=== PATIENT | female | born 1945 | race Caucasian/White ===

== ENCOUNTER → 2016-04-19 | Outpatient (CLI) | payer OTHER ==
--- NOTE | 2016-04-19 18:48 | DX ---
Cervical Spine - 4 views Indication: Spinal fusion. Follow up. Comparison: Cervical spine series dated March 11, 2016 Technique: Upright AP and lateral views in the neutral, flexed, and extended position. Findings: C2 is anterolisthesed 2.5 mm on C3, and C3 is anterolisthesed 2.5 mm on C4 with flexion ma neuvers. This reduces into anatomic alignment with extension (similar to February 2016). The anterior and posterior fusion construct extending from C4 to T1 remains well seated. No perihilar hardware fracture or lucency. The C4 through T1 vertebral bodies are at least partially osseous fuse d. Prevertebral soft tissues are normal. Impression: 1. Minimal instability at the C2-C3 and C3-C4 levels is similar to February 2016. 2. Well seated anterior and posterior fusion construct extending from C4 to T1.
== END ==
LOC: FIMAGING 14:29
PROVIDERS: ATTEND Physician Assistant Surgical
DX: Z09 Encounter for follow-up examination after completed treatment for conditions other than malignant neoplasm (principal); Z98.1 Arthrodesis status

== ENCOUNTER → 2016-06-25 | Outpatient (CLI) | payer OTHER | LOC: FIMAGING 14:07 | PROVIDERS: ATTEND Neurological Surgery | DX: M51.36 Other intervertebral disc degeneration, lumbar region (principal) ==

== ENCOUNTER 2016-07-08 08:45 | Inpatient (IN) | payer OTHER ==
[~2016-07-08 08:45] MED LIST: CITRATE DEXTROSE SOLN 500 ML BAG ONE; DEXAMETHASONE 10 MG/ML VIAL IVP ONE; ceFAZolin 2 GM/DEXTROSE 100 ML IV ONE; fentaNYL 100 MCG/2 ML INJ IT ONE; morphINE PF 5 MG/10 ML INJ IT ONE
[2016-07-08] MEDS ORDERED: THROMBIN (BOVINE) 5,000 UNIT VIAL TP ONE ×2 (09:07→15:27)
[2016-07-08] MEDS ORDERED: BUPIVACAINE 0.25% 30 ML SDV ONE (09:07)
[2016-07-08] MEDS ORDERED: BUPIVACAINE/EPI 0.25% 30 ML SDV ONE (09:08)
[2016-07-08] MEDS ORDERED: BACITRACIN 50,000 UNITS/10 ML SYR IRR ONE ×3 (09:08→15:27)
[2016-07-08] MEDS ORDERED: LIDOCAINE 1% 5 ML SDV ID PRN (09:33)
[2016-07-08] MEDS ORDERED: LR 1,000 ML IV ONE ×2 (09:33→09:40)
[2016-07-08] MEDS ORDERED: PROPOFOL/EMULSION 500 MG/50 ML BOTTLE IV ONE ×3 (09:35→14:10)
[2016-07-08] MEDS ORDERED: fentaNYL 100 MCG/2 ML INJ ONE ×4 (09:35→17:07)
[2016-07-08] MEDS ORDERED: PROPOFOL 200 MG/20 ML VIAL ONE (09:35)
[2016-07-08] MEDS ORDERED: REMIFENTANIL HCL 1 MG VIAL ONE ×3 (09:35)
[2016-07-08] MEDS ORDERED: CITRATE DEXTROSE SOLN 500 ML BAG ONE (10:20)
[2016-07-08] MEDS ORDERED: ROCURONIUM 50 MG/5 ML VIAL ONE (10:31)
[2016-07-08] MEDS ORDERED: ONDANSETRON 4 MG/2 ML VIAL ONE (10:31)
[2016-07-08] MEDS ORDERED: DEXAMETHASONE 4 MG/ML VIAL ONE (10:32)
[2016-07-08] MEDS ORDERED: LIDOCAINE 2% 5 ML SDV ONE (10:38)
[2016-07-08] MEDS ORDERED: PHENYLEPHRINE HCL 100 MCG/ML SYR ONE (11:51)
[2016-07-08] MEDS ORDERED: PHENYLEPHRINE 10 MG/ML SDV ONE (12:18)
[2016-07-08] MEDS ORDERED: ceFAZolin 1 GM VIAL ONE (13:49)
[2016-07-08] MEDS ORDERED: morphINE PF 10 MG/10 ML INJ ONE (15:16)
[2016-07-08 15:42] LABS: ADD DIFF? NO; ADD MORPH? NO; ADD SCAN? NO; ATYPICAL LYMPHOCYTE FLAG 0 (0-99); BASE EXCESS -5.2 mEq/L (-2.5-2.5); BICARBONATE 19 mEq/L (22-26); FRAGMENT RBC FLAG 0 (0-99); HEMATOCRIT 26.4 % (38.0-47.0); HEMOGLOBIN 8.9 g/dL (12.6-16.3); LEFT SHIFT FLG 10 (0-99); LIPEMIA HEMOLYSIS FLAG 80 (0-99); MEAN CELL HEMOGLOBIN 32.2 pg (27.9-34.1); MEAN CELL HEMOGLOBIN CONCENTR. 33.7 g/dL (32.4-36.7); MEAN CELL VOLUME 95.7 fL (81.5-99.8); MEAN PLATELET VOLUME 10.5 fL (8.7-11.7); MEASURED OXYGEN SATURATION 99 % (92-95); PCO2 36 mmHg (34-38); PLATELET CLUMPS FLAG 0 (0-99); PLATELET COUNT 224 10^3/uL (150-400); PO2 215 mmHg (65-75); RED BLOOD CELL COUNT 2.76 10^6/uL (4.18-5.33); RED CELL DISTRIBUTION WIDTH 12.6 % (11.5-15.2); TCO2 20 mEq/L (23-27)
[2016-07-08] MEDS ORDERED: ALBUMIN 5% 250 ML BOTTLE IV ONE (15:45)
[2016-07-08 16:04] LABS: INR 1.22 (0.83-1.16); PROTIME(PATIENT) 15.4 SEC (12.0-15.0)
[2016-07-08] MEDS ORDERED: oxyCODONE IR 5 MG TAB PO PRN (16:52)
[2016-07-08] MEDS ORDERED: NALOXONE HCL 0.4 MG/ML INJ IVP PRN (16:52)
[2016-07-08] MEDS ORDERED: BISACODYL 10 MG SUPP PR PRN (16:52)
[2016-07-08] MEDS ORDERED: ONDANSETRON 4 MG/2 ML VIAL IVP PRN (16:52)
[2016-07-08] MEDS ORDERED: ONDANSETRON DISINTEGRATING 4 MG TAB PO PRN (16:52)
[2016-07-08] MEDS ORDERED: DIAZEPAM 10 MG/2 ML SYR IVP PRN (16:52)
[2016-07-08] MEDS ORDERED: LACTULOSE 20 GM/30 ML UDCUP PO PRN (16:52)
[2016-07-08] MEDS ORDERED: diphenhydrAMINE 25 MG CAP PO PRN (16:52)
[2016-07-08] MEDS ORDERED: MAGNESIUM HYDROXIDE 30 ML UDCUP PO PRN (16:52)
[2016-07-08] MEDS ORDERED: NS W/ 20 KCl/L 1,000 ML IV SCH (17:00)
--- NOTE | 2016-07-08 17:00 | SOAPPROG ---
SOAP Progress Note Assessment/Plan: Assessment: 71 yo F sp L2-S1 TLIF Plan: stable to stepdown overnight ROSALINE to thumbprint suction only PT/OT lovenox starts tomorrow please call with neuro changes 07/08/16 16:58 Subjective: + back pain, no leg pain. Objective: Laboratory Results 07/08/16 15:30 PT 15.4 SEC (12.0-15.0) H 07/08/16 15:30 INR 1.22 (0.83-1.16) H 07/08/16 15:30 somnolent, PERRL, no facial droop CAMILLE x 4 + light touch ICD10 Worksheet Patient Problems: Problems Problem Status Onset Fusion of spine of lumbar region Acute Cervical vertebral fusion Acute - ICD10 Problem Qualifiers (1) Fusion of spine of lumbar region
[2016-07-08] MEDS ORDERED: DIAZEPAM 10 MG/2 ML SYR ONE (17:16)
[2016-07-08] MEDS ORDERED: HYDROmorphONE/DILAUDID 1 MG/ML SYR ONE (17:16)
--- NOTE | 2016-07-08 17:52 | GOP ---
[f rep st] OPERATIVE REPORT DATE OF OPERATION: 07/08/2016 SURGEON: Abdi Rodríguez MD SQUIRT MACHINE OPERATOR: TOMAS Garcia ANESTHESIA: General endotracheal. PREOPERATIVE DIAGNOSIS: Severe multilevel lumbar degenerative joint disease with loss of normal barrett dosis/progressive kyphosis and severe central canal and neural foraminal stenosis. Intractable back pain. Intractable right lower extremity radiculopathy. Failed conservative care. High-risk surgi aubrie candidate given age of 71 years, comorbidities, and required surgical intervention. POSTOPERATIVE DIAGNOSIS: Severe multilevel lumbar degenerative joint disease with loss of normal lo rdosis/progressive kyphosis and severe central canal and neural foraminal stenosis. Intractable marcelle k pain. Intractable right lower extremity radiculopathy. Failed conservative care. High-risk surg ical candidate given age of 71 years, comorbidities, and required surgical intervention. PROCEDURE PERFORMED: Right-sided L2-3, L3-4, L4-5, and L5-S1 far lateral transpedicular decompressi on with L2 through S1 posterior segmental (pedicle screw and axle device) fixation and posterior lat eral fusion with local autograft bone morphogenic protein and morselized allograft. L2-3, L3-4, L4- 5, and L5-S1 posterior/transforaminal lumbar interbody fusion with 2 structural PEEK interbody space rs, local autograft and bone morphogenic protein at each level. Use of intraoperative microscopy, f luoroscopy, and computer volumetric stereotactic navigation with intraoperative neurophysiologic elisha ting. Injection of intrathecal narcotic analgesics and subcutaneous and intramuscular local anesthe jaye for postoperative pain control. FINDINGS: ESTIMATED BLOOD LOSS: 500 cc. INDICATIONS: The patient is a 71-year-old woman with intractable low back pain and right lower extr emity radicular pain secondary to severe multilevel degenerative disk disease, disk space collapse, neural foraminal lateral recess, and central canal stenosis. She has failed extensive conservative care and presents now for surgical decompression and stabilization. DESCRIPTION OF PROCEDURE: After informed consent was obtained, patient was taken to the operating r oom and placed in the prone position on the Pedro table. The lumbosacral area was prepped and mckayla ped in sterile fashion. After fluoroscopic localization of the correct level, the subcutaneous and intramuscular tissues were infiltrated with local anesthesia. A midline linear incision was then cr eated from approximately L2 through S1. This was carried down to the fascial layer, which was incis ed using monopolar electrocautery and carried to the subperiosteal plane along the spinous processes and out lamina bilaterally. Intraoperative fluoroscopy was again utilized to verify the correct le vels. Following this, the dissection was carried out over the facet joints. After re-verification of the correct levels, the microscope was brought in and right-sided far lateral transpedicular deco mpressions were performed at the L2-3, L3-4, L4-5, and L5-S1 levels with complete unroofing of the f acet joints and neural foramen, as well as the lateral recesses bilaterally by angling the microscop e across the midline and out laterally on the same side. During the decompression, it was noted amos t the patient's bone was very soft and her dura had been eroded somewhat in the areas of spinal sten osis, especially at L2-3 and L3-4 on the right, and there were very thin areas of dura, but no CSF l eak and no durotomy during surgery. These areas were overlaid with Gelfoam soaked in blood and left alone. Following adequate decompression, the [employer] Interactive neuronavigational system was brought in, and using computer volumetric stereotactic navigation, pedicle screws were placed at L2, L3, L4, L5, and S1 bilaterally. Each individual screw was tested neurophysiologically with monopolar electrostimul ation and interpretation of the potentials by the surgeon. The left L2 and L3 screws stimulated low , and because of this the O-arm neuronavigational system was brought in and 3-D reconstructed images obtained. The pedicle screws were noted to be in the center of the pedicle, which was very small a t those levels, and that is why there was a slight breech, but there was no better pedicle screw amos t could be placed, and I felt that it was in the best interest to leave these screws, which were act ually 5.5 mm instead of 6.5 mm which were used at all the other levels. These smaller screws were u tilized because I noticed that these pedicles were smaller than the other ones. Following this, ind ividual rods were serially placed, first at L2-3, then at L3-4, then at L4-5, then at L5-S1, during which time distraction was created across each of these interspaces and complete diskectomies were p erformed in preparation of the endplates and placement of 2 structural PEEK interbody spacers, local morselized allograft and bone morphogenic protein at each level for L2-3, L3-4, L4-5, and L5-S1 pos terior/transforaminal lumbar interbody fusions. Following this, longer rods were then placed and se cured with maximal lordosis at L2 through S1 and a slight amount of compression was created across e ach interspace in order to maximize the lordotic curvature and to increase the potential for a fusio n across the interspace and to minimize the potential for posterior graft migration. The wound was then copiously irrigated with antibiotic irrigation. Meticulous hemostasis was again achieved. Bec ause the patient's bone was also extremely soft while placing the pedicle screws, I felt that it was in her best interest to place axial devices at the L2-3 and L5-S1 levels, where there is the highes t risk of hardware failure and nonunion. These were placed and the remaining lamina and facet joint s on the left from L2 through S1 were extensively decorticated and the residual local autograft from the facetectomies along with bone morphogenic protein and morselized allograft was placed out later ally for posterolateral fusion from L2 through S1. 200 mcg of Duramorph, along with 50 mcg of fenta nyl were then injected intrathecally for postoperative pain control. The subcutaneous and intramusc ular tissues were re-infiltrated with local anesthesia, and after re-verification of good position o f the screws, rods, and interbody spacers, and intraspinous process clamps using biplanar fluoroscop y, the wound was closed in a layered fashion using interrupted Vicryl sutures, followed by Steri-Str ips on the skin. COMPLICATIONS: None. DISPOSITION: The patient is currently in the process of being repositioned for extubation. /[id number]/MODL
[2016-07-08] MEDS ORDERED: CEFAZOLIN 1 GM/DEXTROSE/50 ML BAG IV ONE (17:59)
[2016-07-08] MEDS: HYDROmorphONE/DILAUDID 1 MG/ML SYR IVP PRN ×2 (18:47→20:18)
[2016-07-08] MEDS: HYDROCODONE/APAP 10/325 TAB PO PRN (19:36)
[2016-07-08] MEDS: DIAZEPAM 5 MG TAB PO PRN (19:37)
[2016-07-08] MEDS: HYDROmorphONE/DILAUDID 6 MG/30 ML PCA IV PRN (20:58)
[2016-07-08] MEDS: FAMOTIDINE 20 MG/NACL 50 ML IV SCH (20:58)
[2016-07-08] MEDS: SENNOSIDES/DOCUSATE SODIUM TAB PO SCH (21:24)
[2016-07-08] MEDS: morphINE SR 30 MG TAB PO SCH (21:25)
[2016-07-08] MEDS: POLYETHYLENE GLYCOL 3350 17 GM PKT PO SCH (21:34)
[2016-07-09] MEDS: DIAZEPAM 5 MG TAB PO PRN (01:23)
[2016-07-09] MEDS: HYDROCODONE/APAP 10/325 TAB PO PRN (01:30)
[2016-07-09] MEDS: LEVOTHYROXINE 75 MCG TAB PO SCH (04:55)
[2016-07-09 05:10] LABS: % IMMATURE GRANULYOCYTES 0.5 % (0.0-1.1); ABSOLUTE IMMATURE GRANULOCYTES 0.05 10^3/uL (0.00-0.10); ADD DIFF? NO; ADD MORPH? YES; ADD SCAN? NO; ATYPICAL LYMPHOCYTE FLAG 10 (0-99); FRAGMENT RBC FLAG 0 (0-99); HEMATOCRIT 19.8 % (38.0-47.0); LEFT SHIFT FLG 10 (0-99); LIPEMIA HEMOLYSIS FLAG 80 (0-99); MEAN CELL HEMOGLOBIN 31.7 pg (27.9-34.1); MEAN CELL HEMOGLOBIN CONCENTR. 32.3 g/dL (32.4-36.7); MEAN PLATELET VOLUME 10.7 fL (8.7-11.7); PLATELET CLUMPS FLAG 0 (0-99); PLATELET COUNT 117 10^3/uL (150-400); RED BLOOD CELL COUNT 2.02 10^6/uL (4.18-5.33); RED CELL DISTRIBUTION WIDTH 12.7 % (11.5-15.2)
[2016-07-09 05:33] LABS: HEMOGLOBIN 6.4 g/dL (12.6-16.3)
[2016-07-09 05:48] LABS: ANION GAP 4 mEq/L (8-16); CALCIUM 7.4 mg/dL (8.5-10.4); CARBON DIOXIDE 22 mEq/l (22-31); CHLORIDE 116 mEq/L (97-110); CREATININE 0.7 mg/dL (0.6-1.0); GLOMERULAR FILTRATION RATE > 60; GLUCOSE 107 mg/dL (70-100); POTASSIUM 4.5 mEq/L (3.5-5.2); SODIUM 142 mEq/L (134-144)
[2016-07-09 06:06] LABS: HYPOCHROMIA 2+; PLATELET ESTIMATE DECREASED (ADEQ)
[2016-07-09 06:07] LABS: MACROCYTES 1+; MICROCYTES 1+
[2016-07-09 07:28] LABS: HEMATOCRIT 21.1 % (38.0-47.0); HEMOGLOBIN 6.8 g/dL (12.6-16.3)
--- NOTE | 2016-07-09 08:05 | NEUSURGPN ---
Assessment/Plan: Assessment: 71 yo F sp L2-S1 TLIF POD1 Plan: stable hbg 6.8, discussed with V will give 2 units PRBC today Continue ROSALINE to thumbprint suction only PT/OT DVT prophx: TEDs, SCDS, lovenox starts tomorrow Brace with OOB Post op xrays pending please call with neuro changes Subjective: low back pain, denies any leg pain, numbness, tingling or weakness. Objective: NAD A&Ox3 MAEx4 5/5 and equal in BUE and BLE. Incision c/d/i. ROSALINE drain serosanginous Catheter Insertion Date: 07/08/16 - Physician Discussed Patient with : [facility] Physical Exam - Vitals, I&O, Labs I and O 07/08/16 07/09/16 07/10/16 05:59 05:59 05:59 Intake Total 5830 Output Total 1590 Balance 4240 Intake: Oral (ml) 480 IV Intake (ml) 5350 Output: Urine (ml) 975 Catheter 975 Estimated Blood Loss (ml) 500 Wound Drainage (ml) 115 #1 Back [place] 115 Vital Signs Temp Pulse Resp BP Pulse Ox 36.1 C 74 13 103/49 L 99 07/09/16 01:00 07/09/16 06:00 07/09/16 06:00 07/09/16 06:00 07/09/16 06:00 Laboratory Results 07/09/16 06:50 07/09/16 04:45 ICD10 Worksheet Patient Problems: Problems Problem Status Onset Fusion of spine of lumbar region Acute Cervical vertebral fusion Acute
[2016-07-09] MEDS: SENNOSIDES/DOCUSATE SODIUM TAB PO SCH ×2 (09:06→21:20)
[2016-07-09] MEDS: FAMOTIDINE 20 MG/NACL 50 ML IV SCH ×2 (09:06→21:20)
[2016-07-09] MEDS: POLYETHYLENE GLYCOL 3350 17 GM PKT PO SCH ×3 (09:06→21:20)
[2016-07-09] MEDS: morphINE SR 30 MG TAB PO SCH ×2 (09:06→21:20)
[2016-07-09] MEDS: ENOXAPARIN 40 MG/0.4 ML SYR SC SCH (09:07)
[2016-07-09] MEDS: HYDROmorphONE/DILAUDID 6 MG/30 ML PCA IV PRN (18:38)
[2016-07-10] MEDS: LEVOTHYROXINE 75 MCG TAB PO SCH (06:06)
--- NOTE | 2016-07-10 07:47 | NEUSURGPN ---
Date of Surgery: 07/08/16 Post Op Day: 2 Assessment/Plan: Assessment: 71 yo F sp L2-S1 TLIF POD2 Plan: -neuro stable -hbg was 6.8, discussed with Dr. Aguilar yesterday and gave 2 units PRBC today -CBC ordered for this am -Continue ROSALINE to thumbprint suction only -PT/OT-CPM -DVT prophx: TEDs, SCDS, lovenox starts today -Brace with OOB-tolerating well -Post op xrays look good. Pt had fall last night and CT head was neg per RN report from Dr Bess. Johnathan spine xrays reviewed with Dr Aguilar and no complications noted. No change in hardware -continue with current pain management strategy -pt may need rehab options -please call with neuro changes Subjective: Awake and alert. NAD. Pt with some expected lower back pain. No san/neck/chest/ gu complaints. No f/c/n/v/d. Objective: AAO x 3, PERRLA/EOMI no droop CN 2-12 grossly intact +lt touch 5/5 BUE/BLE = CDI ROSALINE in place Neuro Check Frequency: per routine Urinary Catheter in Place: No Catheter Insertion Date: 07/08/16 - Physician Discussed Patient with : [facility] Physical Exam - Vitals, I&O, Labs I and O 07/09/16 07/10/16 07/11/16 05:59 05:59 05:59 Intake Total 5830 1244 Output Total 1590 1245 Balance 4240 -1 Intake: Oral (ml) 480 490 IV Intake (ml) 5350 754 Output: Urine (ml) 975 950 Bedside Commode 300 Catheter 975 350 Toilet 300 Estimated Blood Loss (ml) 500 Wound Drainage (ml) 115 295 #1 Back [place] 115 295 Other: Number of Voids Bedside Commode 1 Toilet 1 Vital Signs Temp Pulse Resp BP Pulse Ox 36.7 C 93 16 116/48 L 92 07/10/16 06:00 07/10/16 06:00 07/10/16 06:00 07/10/16 06:00 07/10/16 06:00 Laboratory Results 07/09/16 06:50 07/09/16 04:45 ICD10 Worksheet Patient Problems: Problems Problem Status Onset Fusion of spine of lumbar region Acute Cervical vertebral fusion Acute
[2016-07-10 08:39] LABS: HEMOGLOBIN 10.8 g/dL (12.6-16.3); MEAN CELL HEMOGLOBIN 31.9 pg (27.9-34.1); MEAN CELL HEMOGLOBIN CONCENTR. 34.8 g/dL (32.4-36.7); MEAN CELL VOLUME 91.4 fL (81.5-99.8); RED BLOOD CELL COUNT 3.39 10^6/uL (4.18-5.33); RED CELL DISTRIBUTION WIDTH 14.6 % (11.5-15.2)
[2016-07-10] MEDS: ENOXAPARIN 40 MG/0.4 ML SYR SC SCH (10:14)
[2016-07-10] MEDS: SENNOSIDES/DOCUSATE SODIUM TAB PO SCH ×2 (10:14→20:13)
[2016-07-10] MEDS: morphINE SR 30 MG TAB PO SCH ×2 (10:14→20:13)
[2016-07-10] MEDS: POLYETHYLENE GLYCOL 3350 17 GM PKT PO SCH ×3 (10:14→20:14)
[2016-07-10] MEDS: FAMOTIDINE 20 MG TAB PO SCH ×2 (10:15→20:13)
[2016-07-10] MEDS: FAMOTIDINE 20 MG/NACL 50 ML IV SCH (10:31)
[2016-07-10] MEDS: ACETAMINOPHEN 325 MG TAB PO PRN (18:17)
[2016-07-10] MEDS: METHOCARBAMOL 750 MG TAB PO PRN (18:18)
[2016-07-11] MEDS: LEVOTHYROXINE 75 MCG TAB PO SCH (05:38)
[2016-07-11] MEDS: ENOXAPARIN 40 MG/0.4 ML SYR SC SCH (07:54)
[2016-07-11] MEDS: METHOCARBAMOL 750 MG TAB PO PRN ×2 (07:54→20:30)
[2016-07-11] MEDS: morphINE SR 30 MG TAB PO SCH ×2 (07:54→20:31)
[2016-07-11] MEDS: ACETAMINOPHEN 325 MG TAB PO PRN (07:54)
[2016-07-11] MEDS: SENNOSIDES/DOCUSATE SODIUM TAB PO SCH ×2 (07:55→20:31)
[2016-07-11] MEDS: FAMOTIDINE 20 MG TAB PO SCH ×2 (07:55→20:30)
[2016-07-11] MEDS: POLYETHYLENE GLYCOL 3350 17 GM PKT PO SCH ×3 (08:05→20:38)
[2016-07-11] MEDS: HYDROCODONE/APAP 10/325 TAB PO PRN (12:11)
--- NOTE | 2016-07-11 14:40 | NEUSURGPN ---
Assessment/Plan: Assessment: 71 yo F sp L2-S1 TLIF POD2 Plan: stable and doing much better than yesterday. hbg/Hct improved today after transfusing 2 units PRBC yesterday- 01/11 DC ALLEN drain today PT/OT DVT prophx: TEDs, SCDS, lovenox Brace with OOB Post op xrays show good hardware placement please call with neuro changes Subjective: Patient states that she is doing much better this morning. Since her all the other day she is feeling better and does not have a headache. She has expected back pain but is tolerable on medications. Has been up with PT in room but not to hallway yet. Leg numbness improved. Eating, drinking, voiding well. Objective: NAD, VSS CN II-XII grossly intact A&O X 3 BLE 5/5= Sensation intact to lt touch Allen X1- to thumbprint suction, some blood leaking from drain site INcision c/d/i- dressed Catheter Insertion Date: 07/08/16 - Physician Discussed Patient with : [facility] Physical Exam - Vitals, I&O, Labs I and O 07/10/16 07/11/16 07/12/16 05:59 05:59 05:59 Intake Total 1244 1975 Output Total 1245 1310 Balance -1 665 Intake: Oral (ml) 490 1750 IV Intake (ml) 754 IV Infused (ml) 225 NS W/ 20 KCl/L 1,000 ml @ 225 75 mls/hr IV CONT DORIS Rx #:[id number] Output: Urine (ml) 950 1050 Bedside Commode 300 500 Catheter 350 Toilet 300 550 Wound Drainage (ml) 295 260 #1 Back [place] 295 260 Other: Intake Quantity Yes Sufficient Number of Voids Bedside Commode 1 2 Toilet 1 2 1 Vital Signs Temp Pulse Resp BP Pulse Ox 37.3 C 97 18 129/97 H 96 07/11/16 08:02 07/11/16 08:02 07/11/16 08:02 07/11/16 08:02 07/11/16 08:02 Laboratory Results 07/10/16 08:28 07/09/16 04:45 ICD10 Worksheet Patient Problems: Problems Problem Status Onset Fusion of spine of lumbar region Acute Cervical vertebral fusion Acute
[2016-07-11] MEDS: HYDROmorphONE/DILAUDID 1 MG/ML SYR IVP PRN (20:31)
[2016-07-11] MEDS: DIAZEPAM 5 MG TAB PO PRN (20:31)
[2016-07-12] MEDS: HYDROCODONE/APAP 10/325 TAB PO PRN ×3 (00:53→15:44)
[2016-07-12] MEDS: METHOCARBAMOL 750 MG TAB PO PRN ×2 (02:34→12:39)
[2016-07-12] MEDS: LEVOTHYROXINE 75 MCG TAB PO SCH (05:49)
[2016-07-12] MEDS: SENNOSIDES/DOCUSATE SODIUM TAB PO SCH ×2 (08:06→19:36)
[2016-07-12] MEDS: FAMOTIDINE 20 MG TAB PO SCH ×2 (08:06→19:35)
--- NOTE | 2016-07-12 08:06 | NEUSURGPN ---
Assessment/Plan: Assessment: 71 yo F sp L2-S1 TLIF POD3 Plan: stable and doing much better than yesterday. urinary frequency - check UA Pt. with post op anemia due to surgical blood loss. hbg/Hct improved after transfusing 2 units PRBC tuesday- 01/11 PT/OT DVT prophx: TEDs, SCDS, lovenox Brace with OOB Post op xrays show good hardware placement please call with neuro changes Dispo - possibly today pending clinical course Subjective: Pt resting at edge of bed, RN in room. Pt has been urinating every 5-10 minutes. Back pain well controlled. Objective: AAOx3 NAD VSS MAEx4 Motor 5/5 BLE Incision cdi steri strips intact +LT Urinary Catheter in Place: No Catheter Insertion Date: 07/08/16 - Physician Discussed Patient with : [facility] Neurosurgery Physical Exam - Vitals, I&O, Labs I and O 07/11/16 07/12/16 07/13/16 05:59 05:59 05:59 Intake Total 1975 600 Output Total 1310 200 Balance 665 400 Intake: Oral (ml) 1750 600 IV Infused (ml) 225 NS W/ 20 KCl/L 1,000 ml @ 225 75 mls/hr IV CONT DORIS Rx #:[id number] Output: Urine (ml) 1050 200 Bedside Commode 500 Toilet 550 200 Wound Drainage (ml) 260 #1 Back [place] 260 Other: Intake Quantity Yes Yes Sufficient Number of Voids Bedside Commode 2 6 Toilet 2 1 Post Void Residual Scan Volume (ml) Toilet 119 Vital Signs Temp Pulse Resp BP Pulse Ox 36.7 C 81 16 143/76 H 97 07/12/16 08:00 07/12/16 08:00 07/12/16 08:00 07/12/16 08:00 07/12/16 08:00 Laboratory Results 07/10/16 08:28 07/09/16 04:45 ICD10 Worksheet Patient Problems: Problems Problem Status Onset Fusion of spine of lumbar region Acute Cervical vertebral fusion Acute
[2016-07-12] MEDS: morphINE SR 30 MG TAB PO SCH ×2 (08:07→21:11)
[2016-07-12] MEDS: POLYETHYLENE GLYCOL 3350 17 GM PKT PO SCH ×3 (08:07→21:11)
[2016-07-12] MEDS: ENOXAPARIN 40 MG/0.4 ML SYR SC SCH (08:07)
[2016-07-12 11:36] LABS: COLOR YELLOW; LEUKOCYTE ESTERASE,URINE NEGATIVE (NEGATIVE); NITRITE,URINE NEGATIVE (NEGATIVE)
[2016-07-12] MEDS: DIAZEPAM 5 MG TAB PO PRN (19:35)
[2016-07-13] MEDS: HYDROCODONE/APAP 10/325 TAB PO PRN ×3 (04:04→16:44)
[2016-07-13] MEDS: LEVOTHYROXINE 75 MCG TAB PO SCH (04:05)
--- NOTE | 2016-07-13 07:45 | NEUSURGPN ---
Date of Surgery: 07/08/16 Post Op Day: 5 Assessment/Plan: Assessment: 71 yo F sp L2-S1 TLIF POD 5 Plan: -stable and doing much better than yesterday but has some anterior thigh pain bilaterally-achey in nature. -urinary frequency better -Pt. with post op anemia due to surgical blood loss. hbg/Hct improved after transfusing 2 units PRBC tuesday- 01/11 -CPM with PT/OT -DVT prophx: TEDs, SCDS, lovenox -Brace with OOB -Post op xrays show good hardware placement -please call with neuro changes -Dispo - possibly today pending clinical course -case management on board Subjective: Awake and alert. NAD. Eating/drinking and voiding. Objective: AAOx3 NAD VSS MAEx4 Motor 5/5 BLE Incision cdi steri strips intact +LT Neuro Check Frequency: per routine Urinary Catheter in Place: No Catheter Insertion Date: 07/08/16 - Physician Discussed Patient with : [facility] Physical Exam - Vitals, I&O, Labs I and O 07/12/16 07/13/16 07/14/16 05:59 05:59 05:59 Intake Total 600 1700 300 Output Total 200 1450 250 Balance 400 250 50 Intake: Oral (ml) 600 1700 300 Output: Urine (ml) 200 1450 250 Toilet 200 1450 250 Other: Intake Quantity Yes Yes Sufficient Number of Voids Bedside Commode 6 Toilet 1 2 Bladder Scan Volume (ml) Toilet 59 Post Void Residual Scan Volume (ml) Toilet 119 Vital Signs Temp Pulse Resp BP Pulse Ox 36.6 C 80 14 156/81 H 94 07/13/16 07:38 07/13/16 07:38 07/13/16 07:38 07/13/16 07:38 07/13/16 07:38 Laboratory Results 07/10/16 08:28 07/09/16 04:45 ICD10 Worksheet Patient Problems: Problems Problem Status Onset Fusion of spine of lumbar region Acute Cervical vertebral fusion Acute
[2016-07-13] MEDS: POLYETHYLENE GLYCOL 3350 17 GM PKT PO SCH ×3 (08:08→21:40)
[2016-07-13] MEDS: METHOCARBAMOL 750 MG TAB PO PRN (08:09)
[2016-07-13] MEDS: FAMOTIDINE 20 MG TAB PO SCH ×2 (08:09→21:03)
[2016-07-13] MEDS: SENNOSIDES/DOCUSATE SODIUM TAB PO SCH ×2 (08:09→21:03)
[2016-07-13] MEDS: morphINE SR 30 MG TAB PO SCH ×2 (08:09→21:03)
[2016-07-13] MEDS: ENOXAPARIN 40 MG/0.4 ML SYR SC SCH (08:11)
[2016-07-13] MEDS: DIAZEPAM 5 MG TAB PO PRN (21:13)
[2016-07-14] MEDS: METHOCARBAMOL 750 MG TAB PO PRN (03:02)
[2016-07-14] MEDS: HYDROCODONE/APAP 10/325 TAB PO PRN ×3 (03:02→11:39)
[2016-07-14] MEDS: LEVOTHYROXINE 75 MCG TAB PO SCH (05:05)
[2016-07-14] MEDS: ACETAMINOPHEN 325 MG TAB PO PRN (05:07)
--- NOTE | 2016-07-14 08:00 | SOAPPROG ---
SOAP Progress Note Assessment/Plan: Assessment: 71 yo F POD #6 L2-S1 TLIF Plan: neuro: stable and doing well overall x-rays after fall are stable PT/OT/ST dc capacity planner looking at rehab options scd/[place]/lovenox for dvt prophylaxis please call with neuro changes discussed with Dr Aguilar 07/08/16 16:58 07/14/16 07:57 Subjective: continued back pain, some leg pain with walking. Objective: Vital Signs Temp Pulse Resp BP Pulse Ox 37.5 C 94 18 154/80 H 96 07/13/16 23:52 07/13/16 23:52 07/13/16 23:52 07/13/16 23:52 07/13/16 23:52 Laboratory Results 07/10/16 08:28 07/09/16 04:45 07/13/16 07/14/16 07/15/16 05:59 05:59 05:59 Intake Total 1700 2000 Output Total 1450 1450 Balance 250 550 PT 15.4 SEC (12.0-15.0) H 07/08/16 15:30 INR 1.22 (0.83-1.16) H 07/08/16 15:30 AAOX4, +FC PERRL, EOMI, no facial droop 5/5 + light touch C/D/I ICD10 Worksheet Patient Problems: Problems Problem Status Onset Fusion of spine of lumbar region Acute Cervical vertebral fusion Acute - ICD10 Problem Qualifiers (1) Fusion of spine of lumbar region
[2016-07-14 08:14] VITALS: RESP 16
[2016-07-14] MEDS: SENNOSIDES/DOCUSATE SODIUM TAB PO SCH (08:30)
[2016-07-14] MEDS: FAMOTIDINE 20 MG TAB PO SCH (08:31)
[2016-07-14] MEDS: ENOXAPARIN 40 MG/0.4 ML SYR SC SCH (08:31)
[2016-07-14] MEDS: morphINE SR 30 MG TAB PO SCH (08:32)
[2016-07-14] MEDS: POLYETHYLENE GLYCOL 3350 17 GM PKT PO SCH (08:32)
[2016-07-14 11:28] VITALS: BP 141/95; PULSE 65; TEMP 98.4; O2SAT 100
[2016-07-14] MEDS: DIAZEPAM 5 MG TAB PO PRN (11:38)
--- NOTE | 2016-07-14 14:56 | PDIAF ---
- Diagnosis Code Status: Full Code - Medication Management Discharge Medications: Medications to Continue on Transfer Levothyroxine [Synthroid 75 mcg (*)] 75 mcg PO DAILY06 07/05/16 [Last Taken 07:00] Multivitamins [Multivitamin (*)] 1 each PO DAILY 07/05/16 [Last Taken 07/01/16] Enoxaparin [Lovenox 40 MG (*)] 40 mg SC DAILY #0 syr 07/14/16 [Last Taken Unknown] HYDROcodone/APAP 10/325 [[place] 10/325 (*)] 1 - 2 tab PO Q6HRS PRN #0 tab [Last Taken Unknown] Methocarbamol [Robaxin 750 mg (*)] 750 mg PO QID PRN #0 tab 07/14/16 [Last Taken Unknown] morphINE SR [MS Contin/Oramorph SR 30 mg (*)] 30 mg PO BID #0 tab 07/14/16 [ Last Taken Unknown] Discharge Medications: Refer to the Discharge Home Medication list for PRN reason. - Orders Services needed: Registered Nurse, Physical Therapy, Occupational Therapy, Speech Language Pathologist Diet Recommendation: no restrictions on diet Diet Texture: Regular Texture Diet Wound Care Instructions: remove steristrips on 07/22/16 - Follow Up Care Current Providers and Referrals: Janet Christensen MD [Primary Care Provider] -
== END 2016-07-14 16:04 | DRG 460 ==
LOC: F3N 08:45 → F2N 15:53 → F3N 07-09 17:23
PROVIDERS: ADMIT Neurological Surgery; ATTEND Neurological Surgery
DX: M51.36 Other intervertebral disc degeneration, lumbar region (principal); M48.06 Spinal stenosis, lumbar region; M48.07 Spinal stenosis, lumbosacral region; M51.37 Other intervertebral disc degeneration, lumbosacral region; D62 Acute posthemorrhagic anemia; M40.209 Unspecified kyphosis, site unspecified; Z98.1 Arthrodesis status
CPT/HCPCS: 92523-GN; 97116-GP; 97161-GP; 97165-GO; 97530-GP; 97535-GO; C1713; C1762; G8978-GP-CJ; G8979-GP-CI; G8987-GO-CK; G8988-GO-CI; G9165-GN-CJ; G9166-GN-CI; J0690; J1100; J1170; J1650; J2274; J2370; J2405; J2704; J3010; J7060; P9016; P9041

== ENCOUNTER 2016-07-19 12:04 | Emergency (ER) | payer OTHER ==
--- NOTE | 2016-07-19 13:31 | EDPHY ---
H & P Stated Complaint: Pt states recent back surg;fell out of bed Fri;today more pain in legs/back Time Seen by Provider: 07/19/16 13:25 HPI/ROS: CHIEF COMPLAINT: Left hip pain HISTORY OF PRESENT ILLNESS: This is a 71-year-old female presenting to the emergency department complaining of left hip pain status post fall. Patient was admitted here to [facility] for back surgery on 07/08/16 for DJD discharge on 07/14/16. Patient states when she was in the hospital she did take a fall landing on her lower back and her left hip, neither injury bothered her until last night. Patient states yesterday evening she had this sudden onset of left hip pain radiating to her thigh increased pain with ambulation, denies any lower back pain, no bowel or bladder incontinence. No new falls or injuries REVIEW OF SYSTEMS: Constitutional: No fever, no chills. Eyes: No discharge. ENT: No sore throat. Cardiovascular: No chest pain, no palpitations. Respiratory: No cough, no shortness of breath. Gastrointestinal: No abdominal pain, no vomiting. Genitourinary: No hematuria. Musculoskeletal: No back pain. Left hip pain Skin: No rashes. Neurological: No headache. Source: Patient, Old records - Personal History Current Tetanus Diphtheria and Acellular Pertussis (TDAP): Yes - Medical/Surgical History Hx Asthma: No Hx Chronic Respiratory Disease: No Hx Diabetes: No Hx Cardiac Disease: No Hx Renal Disease: No Hx Cirrhosis: No Hx Alcoholism: No Hx HIV/AIDS: No Hx Splenectomy or Spleen Trauma: No Other PMH: hypothyroid,HTN. chronic pain - Social History Smoking Status: Never smoked - Physical Exam Exam: General Appearance: Alert, no distress. Eyes: Pupils equal and round no pallor or injection. ENT, Mouth: Mucous membranes moist. Respiratory: There are no retractions, lungs are clear to auscultation. Cardiovascular: Regular rate and rhythm. Gastrointestinal: Abdomen is soft and nontender, no masses, bowel sounds normal. Neurological: No focal deficits. Ambulatory with antalgic gait Skin: Warm and dry, no rashes. Musculoskeletal: Neck is supple nontender. Lumbar spine incision site well approximated no erythema nontender on palpate Extremities: symmetrical, decreased range of motion left hip no obvious deformity. Moving all extremities. Positive CMS intact Psychiatric: Patient is oriented X 3, there is no agitation. Constitutional: Initial Vital Signs Temperature (C) 36.8 C 07/19/16 12:10 Heart Rate 96 07/19/16 12:10 Respiratory Rate 18 07/19/16 12:10 Blood Pressure 146/100 H 07/19/16 12:10 O2 Sat (%) 99 07/19/16 12:10 O2 Delivery Mode Room Air Allergies/Adverse Reactions: No Known Allergies Allergy (Verified 07/06/16 13:10) Home Medications: Medication Instructions Recorded Levothyroxine [Synthroid 75 mcg 75 mcg PO DAILY06 07/05/16 (*)] HYDROcodone/APAP 10/325 [[place] 1 - 2 tab PO Q6HRS PRN #0 tab 07/14/16 10/325 (*)] oxyCODONE/APAP 5/325 [Percocet 1 - 2 tab PO Q6H PRN #10 tab 07/19/16 5/325 (*)] Medical Decision Making - Diagnostics Imaging Results: Imaging Impressions Hip X-Ray 07/19/16 13:51 Impression: Negative radiographs of the left hip. ED Course/Re-evaluation: Discussed the plan of care: X-ray of left hip, reviewed old records 1500: Discussed x-ray results no acute fracture seen 1515: Patient states feeling better after pain medicine. The discussed discharge instructions with patient. Discharge home---> stable Differential Diagnosis: Other differential diagnosis considered but not limited to pelvis fracture, femur fracture, and greater trochanter fracture - Data Points Medications Given: Discontinued Medications Oxycodone/Acetaminophen (Percocet 5/325) 2 tab PO EDNOW ONE Stop: 07/19/16 13:53 Last Admin: 07/19/16 14:12 Dose: 2 tab Departure - Departure Disposition: Home, Routine, Self-Care Clinical Impression: Hip pain, right Condition: Good Instructions: Arthralgia (ED), Hip Pain (ED) Additional Instructions: Discussed discharge instructions 1. Wear back brace as indicated post surgery 2. Take your prescription medication the have at home as prescribed 3. Decrease strenuous activity 4. you can use a heating pad to your hip as needed. I would recommend utilizing a cane or walker to assist if you feel like you losing her balance since her back surgery. Follow up with your primary care physician this week Referrals: Janet Christensen MD [Primary Care Provider] - As per Instructions Prescriptions: oxyCODONE/APAP 5/325 [Percocet 5/325 (*)] 1 - 2 tab PO Q6H PRN #10 tab PRN Reason: Pain, Severe
[2016-07-19] MEDS ORDERED: OXYCODONE/APAP 5/325 TAB PO ONE (13:52)
[2016-07-19 15:40] VITALS: BP 140/86; PULSE 90; RESP 14; TEMP 98.1; O2SAT 97
== END 2016-07-19 15:40 | disposition home or self-care (01) ==
DX: S79.912A Unspecified injury of left hip, initial encounter (principal); I10 Essential (primary) hypertension; W18.39XA Other fall on same level, initial encounter; Y92.239 Unspecified place in hospital as the place of occurrence of the external cause

== ENCOUNTER → 2016-07-28 | Outpatient (CLI) | payer OTHER | LOC: FIMAGING 13:14 | PROVIDERS: ATTEND Physician Assistant Surgical | DX: Z98.1 Arthrodesis status (principal); M53.86 Other specified dorsopathies, lumbar region ==

== ENCOUNTER → 2016-11-02 | Outpatient (CLI) | payer OTHER | LOC: FIMAGING 12:49 | PROVIDERS: ATTEND Physician Assistant Surgical | DX: Z09 Encounter for follow-up examination after completed treatment for conditions other than malignant neoplasm (principal); Z98.1 Arthrodesis status ==

== ENCOUNTER → 2017-02-23 | Outpatient (CLI) | payer OTHER | LOC: FIMAGING 11:56 | PROVIDERS: ATTEND Physician Assistant Surgical | DX: Z09 Encounter for follow-up examination after completed treatment for conditions other than malignant neoplasm (principal); Z98.1 Arthrodesis status ==

== ENCOUNTER → 2017-06-23 | Outpatient (CLI) | payer OTHER | LOC: FIMAGING 14:05 | PROVIDERS: ATTEND Physician Assistant Surgical | DX: Z09 Encounter for follow-up examination after completed treatment for conditions other than malignant neoplasm (principal); M51.36 Other intervertebral disc degeneration, lumbar region; Z98.1 Arthrodesis status ==

== ENCOUNTER 2017-06-24 13:25 | Emergency (ER) | payer OTHER ==
[2017-06-24 14:29] VITALS: BP 162/106
== END 2017-06-24 14:33 | disposition left against medical advice (07) ==
DX: Z53.21 Procedure and treatment not carried out due to patient leaving prior to being seen by health care provider (principal)

== ENCOUNTER → 2017-07-21 | Outpatient (CLI) | payer OTHER | LOC: BHFA 16:00 | PROVIDERS: ATTEND Internal Medicine Cardiovascular Disease | DX: R00.2 Palpitations (principal) ==

== ENCOUNTER → 2018-01-03 | Outpatient (CLI) | payer OTHER | LOC: FIMAGING 12:28 | PROVIDERS: ATTEND Family Medicine | DX: Z12.31 Encounter for screening mammogram for malignant neoplasm of breast (principal); Z13.820 Encounter for screening for osteoporosis; M81.0 Age-related osteoporosis without current pathological fracture; Z78.0 Asymptomatic menopausal state; Z79.899 Other long term (current) drug therapy ==